=== PATIENT | female | born 1955 | race Caucasian/White ===

== ENCOUNTER 2017-12-14 19:02 | Emergency (ER) | payer OTHER ==
[2017-12-14] MEDS ORDERED: Dexamethasone 20 MG/5 ML VIAL ONE (19:23)
[2017-12-14] MEDS ORDERED: hydrOXYzine 25 MG TAB ONE ×2 (19:30→19:32)
== END 2017-12-14 19:51 | disposition home or self-care (01) ==
LOC: NAV ERS 19:02
DX: T63.461A Toxic effect of venom of wasps, accidental (unintentional), initial encounter (principal); L50.9 Urticaria, unspecified; F32.9 Major depressive disorder, single episode, unspecified; F17.210 Nicotine dependence, cigarettes, uncomplicated; I25.2 Old myocardial infarction; I10 Essential (primary) hypertension; E78.5 Hyperlipidemia, unspecified; Z79.899 Other long term (current) drug therapy; Z79.82 Long term (current) use of aspirin
CPT/HCPCS: 96372; J1100

== ENCOUNTER 2018-03-30 08:49 | Outpatient (CLI) | payer OTHER ==
--- NOTE | 2018-03-30 10:55 | RAD ---
LEFT KNEE 4 VIEWS: HISTORY: A 62-year-old female with a history of left knee pain without known injury. FINDINGS: No evidence for acute fracture or dislocation. Probable small intraosseous cyst in the region of the medial posterior intercondylar eminence region, possibly of degenerative origin. No significant abn ormal joint effusion. IMPRESSION: No acute fracture or dislocation. Possible intraosseous cyst in the medial posterior intercondylar e minence. Depending upon concern, consideration for followup nonemergent left knee MRI. POS: [facility]
== END 2018-03-30 08:50 | disposition home or self-care (01) ==
LOC: NAV RAD 08:49
PROVIDERS: ATTEND Family Medicine
DX: M25.562 Pain in left knee (principal)

== ENCOUNTER 2018-05-12 11:05 | Emergency (ER) | payer OTHER ==
[2018-05-12] MEDS ORDERED: predniSONE 20 MG TAB ONE (11:50)
--- NOTE | 2018-05-12 12:01 | RAD ---
TWO VIEWS OF THE CHEST: COMPARISON: 11/24/2013. HISTORY: Cough and wheezing. FINDINGS: Two views of the chest show a normal-size cardiomediastinal silhouette. The patient is status post s ternotomy. There is no evidence of consolidation, mass, or pleural effusion. The bones are unremark able. IMPRESSION: No evidence of acute cardiopulmonary disease. POS: [facility]
== END 2018-05-12 11:54 | disposition home or self-care (01) ==
LOC: NAV ERS 11:05
DX: J06.9 Acute upper respiratory infection, unspecified (principal); F17.210 Nicotine dependence, cigarettes, uncomplicated; I25.2 Old myocardial infarction; I25.10 Atherosclerotic heart disease of native coronary artery without angina pectoris; F32.9 Major depressive disorder, single episode, unspecified; E78.5 Hyperlipidemia, unspecified; I10 Essential (primary) hypertension; Z79.899 Other long term (current) drug therapy; Z79.82 Long term (current) use of aspirin; Z79.891 Long term (current) use of opiate analgesic
CPT/HCPCS: 71046; J7506

== ENCOUNTER 2018-07-08 12:24 | Emergency (ER) | payer OTHER ==
--- NOTE | 2018-07-08 12:44 | RAD ---
FRadiograph chest one view: HISTORY: 63-year-old female with chest pain FINDINGS: The visualized lung jj are clear. The cardiomediastinal silhouette is normal. No pneumothorax. IMPRESSION: No acute cardiopulmonary findings.
[2018-07-08 12:53] LABS: #Basophils 0.1 thou/uL (0.0-0.2); #Eosinphils 0.4 thou/uL (0.0-0.7); #Lymphocytes 2.9 thou/uL (1.20-3.40); #Monocytes 0.8 thou/uL (0.11-0.59); #Neutrophils 6.3 thou/uL (1.40-6.50); %Basophils 0.7 % (0.0-1.0); %Eosinophils 3.7 % (0.0-10.0); %Lymphocytes 27.7 % (21.0-51.0); %Monocytes 7.9 % (0.0-10.0); Hemoglobin 16.2 g/dL (12.0-16.0); Mean Corpuscular HGB CONC 32.1 g/dL (32.0-36.0); Mean Corpuscular Hemoglobin 29.3 pg (27.0-31.0); Mean Corpuscular Volume 91.5 fL (78.0-98.0); Mean Platelet Volume 7.1 fL (7.4-10.4); Platelet Count 211 thou/uL (130-400); RBC Distribution Width 13.1 % (11.5-14.5); Red Blood Cell (RBC) Count 5.51 mill/uL (4.20-5.40); White Blood Cell (WBC) Count 10.5 thou/uL (4.8-10.8)
[2018-07-08 13:09] LABS: ALT (SGPT) 35 U/L (8-55); AST (SGOT) 33 U/L (5-34); Albumin 4.5 g/dL (3.4-4.8); Alkaline Phosphatase 99 U/L (40-150); Anion Gap 15 mmol/L (10-20); BUN (Urea Nitrogen) 10 mg/dL (9.8-20.1); Bilirubin, Total 0.5 mg/dL (0.2-1.2); CK (CPK) 115 U/L (29-168); Calc. Creatinine Clearance 0 mL/min (70-130); Calcium 10.9 mg/dL (7.8-10.44); Carbon Dioxide 19 mmol/L (23-31); Chloride 107 mmol/L (98-107); Estimated GFR-MDRD 68; Globulin 3.7 g/dL (2.4-3.5); Glucose 156 mg/dL (80-115); Potassium 4.1 mmol/L (3.5-5.1); Protein, Total 8.2 g/dL (6.0-8.3); Sodium 137 mmol/L (136-145)
== END 2018-07-08 14:08 | disposition home or self-care (01) ==
LOC: NAV ERS 12:24
DX: R07.9 Chest pain, unspecified (principal); I25.2 Old myocardial infarction; E78.5 Hyperlipidemia, unspecified; I10 Essential (primary) hypertension; I25.10 Atherosclerotic heart disease of native coronary artery without angina pectoris; F32.9 Major depressive disorder, single episode, unspecified; F17.210 Nicotine dependence, cigarettes, uncomplicated; Z79.82 Long term (current) use of aspirin; Z79.899 Other long term (current) drug therapy; Z79.51 Long term (current) use of inhaled steroids
CPT/HCPCS: 71045; 80053; 82550; 83880; 84484; 85025; 93005

== ENCOUNTER 2023-02-21 09:27 | Outpatient (CLI) | payer OTHER | END 2023-02-21 09:28 | disposition home or self-care (01) | LOC: NAV RAD 09:27 | PROVIDERS: ATTEND Student in an Organized Health Care Education/Training Program | DX: R05.9 Cough, unspecified (principal) | CPT/HCPCS: 71046 ==